=== PATIENT | female | born 1980 | race Caucasian/White ===

== ENCOUNTER 2024-06-09 16:19 | Emergency (ER) | payer BC, SELFPAY ==
--- NOTE | ~2024-06-09 | CT_ITS ---
CLINICAL HISTORY: fall down stairs CT maxillofacial without contrast Comparison: None Findings: No acute fractures. Temporomandibular joints are intact. Air-fluid level and foamy mucus is noted within the right-sided sphenoid chamber. Orbital contents within normal limits. Visualized intracranial contents are within normal limits. No foreign bodies. IMPRESSION: No evidence of acute osseous injury. Air-fluid level and foamy mucus is noted within the right sphenoid chamber may represent acute sinusitis. This document has been electronically signed by: Tamia Frances MD on 06/09/2024 19:11:10
--- NOTE | ~2024-06-09 | CT_ITS ---
CLINICAL HISTORY: fall down stairs CT cervical spine without contrast Comparison: None Findings: Straightening and mild reversal of the normal cervical lordosis. Mild multilevel spondylosis with disc space narrowing, osteophytosis. No acute fractures or dislocations. Visualized intracranial contents are unremarkable. No cervical fluid collections or masses. Lung apices are clear. IMPRESSION: No evidence of acute fracture or traumatic listhesis of the cervical spine. Mild multilevel spondylosis. This document has been electronically signed by: Tamia Frances MD on 06/09/2024 19:19:32
--- NOTE | ~2024-06-09 | CT_ITS ---
CLINICAL HISTORY: fall down hit head CT head without contrast Comparison: None Findings: No intra-axial mass, midline shift, hydrocephalus, or acute hemorrhage. No significant atrophy-like change or white matter disease. There is no sinus or mastoid fluid. The orbits are unremarkable. No skull fracture. IMPRESSION: 1. No acute intracranial findings. This document has been electronically signed by: Tamia Frances MD on 06/09/2024 19:13:26
[2024-06-09 16:51] VITALS: BP 138/82; PULSE 77; RESP 20; TEMP 36.7; O2SAT 100; BMI 23.4
--- NOTE | 2024-06-09 16:58 | ED.GENADULT ---
HPI - General Adult General Chief complaint: Fall Stated complaint: Fell / open laceration on right side eyebrow Time Seen by Provider: 06/09/24 20:42 Source: patient Limitations: no limitations History of Present Illness ED Provider: Ginger Cabezas PA-C HPI narrative: 44-year-old female presents after fall. Patient states there was water on the floor in her home, she slipped and fell striking her head. No loss consciousness, the patient was not use blood thinners. She sustained a laceration to the lateral side of the right brow. Tetanus up-to-date. Related Data Allergies Allergy/AdvReac Type Severity Reaction Status Date / Time No Known Allergies Allergy Verified 06/09/24 16:55 Review of Systems Review of Systems: Yes all other systems are reviewed and are negative Constitutional: Constitutional: Denies fatigue, Denies fever(s) and Denies headache(s) Eyes: Eyes: Denies change in vision ENT: Denies dizziness and Denies headache(s) Gastrointestinal: Gastrointestinal: Denies nausea and Denies vomiting Neurologic: Denies dizziness and Denies headache(s) Endocrine: Endocrine: Denies fatigue [facility] Past Medical History Attestation statement: The following information was validated with the patient. Social History Social History Advance Directives: No Advance Directives Information Provided: No Do you have a plan to hurt others: No Plan Physical Exam ED Vital Signs: Vital Signs - 24 hr 06/09/24 21:47 06/09/24 21:53 06/09/24 22:09 Temperature 97.8 F 0 F L Pulse Rate 68 72 0 L Respiratory Rate 16 0 L Blood Pressure 105/70 110/78 0/0 L Pulse Oximetry 99 0 L Oxygen Delivery Method Room Air BMI result Body Mass Index 23.4 Const Other: Alert, 3 cm linear laceration lateral to right brow not bleeding Orientation/consciousness: patient oriented x3 Resp Effort & Inspection: normal respiratory effort Cardio Other: Normal peripheral perfusion Skin Other: Warm dry no rash Neuro General: patient oriented x3, gait normal, no focal motor deficits and CN's II-XI intact bilaterally Psych Other: Cooperative Course Course Course Narrative: RME: 44 yold female presents to the ED for right facial pain/headache hitting head on wooden stairs due falling unto the stairs. patient has small right faical laceration. Images ordered Procedures Laceration Laceration 1: Site: face Side (If applicable): right Size (cm): 3 Description: linear Depth: simple, single layer Local Anesthetic: lidocaine 1% and with epi Amount of anesthesia used (mL): 2 Pre-repair: irrigated extensively Skin layer closed with: vicryl Size (cm): 5-0 Number of sutures: 7 Medical Decision Making Medical Decision Making MDM Narrative: 44-year-old female presents after fall. Patient states there was water on the floor in her home, she slipped and fell striking her head. No loss consciousness, the patient was not use blood thinners. She sustained a laceration to the lateral side of the right brow. Tetanus up-to-date No chronic issues History: Per patient I have considered the following differential diagnoses: Intracranial hemorrhage, cervical spine injury, facial fracture Plan: Imaging was ordered from triage, everything is negative the laceration require simple repair I have independently reviewed the following tests: CT brain: IMPRESSION: 1. No acute intracranial findings. CT cervical spine:MPRESSION: No evidence of acute fracture or traumatic listhesis of the cervical spine. Mild multilevel spondylosis. This document has been electronically signed by: Tamia henson face:IMPRESSION: No evidence of acute osseous injury. Air-fluid level and foamy mucus is noted within the right sphenoid chamber may represent acute sinusitis. Discharge Plan Discharge Clinical Impression: Facial laceration Patient Disposition: Home, Self-Care Instructions: Laceration (ED) Additional Instructions: CT scans were obtained of your brain, cervical spine and face, no fractures were sustained. The laceration that you sustained was repaired with 7 sutures. The stitches are absorbable, the exterior portion we will fall off within 7 days. Watch for signs of infection which would include redness, swelling, warmth, pus draining from the site or fever. Follow up with your primary care provider as needed. Interventions: ED Discharge Assessment Last Done: 06/09/24 22:09 Discharge Date/Time: 06/09/24 22:10 Print Language: [place]
[2024-06-09 21:47] VITALS: BP 105/70; PULSE 68; RESP 16; TEMP 36.6; O2SAT 99
[2024-06-09 21:53] VITALS: BP 110/78; PULSE 72
[2024-06-09 22:09] VITALS: BP 0/0; PULSE 0; RESP 0; TEMP -17.7; TEMP 0; O2SAT 0
== END 2024-06-09 22:10 | disposition home or self-care (01) ==
PROVIDERS: Emergency Provider Emergency Medicine Emergency Medical Services
DX: S01.111A Laceration without foreign body of right eyelid and periocular area, initial encounter (principal); M54.2 Cervicalgia; R51.9 Headache, unspecified; W01.0XXA Fall on same level from slipping, tripping and stumbling without subsequent striking against object, initial encounter; Y93.9 Activity, unspecified; Y92.009 Unspecified place in unspecified non-institutional (private) residence as the place of occurrence of the external cause; Y99.8 Other external cause status
CPT/HCPCS: 12013; 70450; 70486; 72125; 99283; 99284

== ENCOUNTER → 2024-06-09 16:57 | Outpatient (BNV) | payer BC, SELFPAY | PROVIDERS: Visit Provider Student in an Organized Health Care Education/Training Program | DX: S01.81XA Laceration without foreign body of other part of head, initial encounter (principal); W10.8XXA Fall (on) (from) other stairs and steps, initial encounter | CPT/HCPCS: 70450; 70486; 72125 ==